=== PATIENT | male | born 1960 | race Caucasian/White ===

== ENCOUNTER 2016-12-12 13:52 | Inpatient (IN) | payer OTHER ==
[~2016-12-12] VITALS: Ht 182.9 cm; Wt 150.5 kg
[~2016-12-12 13:52] MED LIST: Hydrocodone Bit/Acetaminophen PO; LEVO750T25 PO
[2016-12-12] MEDS ORDERED: DICLOFENAC SODIUM 37.5 MG/ML VIAL IV STA (16:09)
[2016-12-12] MEDS ORDERED: VANCOMYCIN 1 GM (PMX) 250 ML IVPB SCH (16:30)
[2016-12-12] MEDS ORDERED: SOD CHLORIDE 0.9% 1,000 ML IV ONE (16:30)
[2016-12-12 16:46] LABS: ADD SCAN DIFF NO
[2016-12-12 16:50] LABS: BASOPHILS % 0.5 % (0.0-2.0); EOSINOPHILS # 0.2 10^3/ul (0.0-0.5); EOSINOPHILS % 3.2 % (0.0-7.0); HEMATOCRIT 42.1 % (42.0-52.0); HEMOGLOBIN 13.7 g/dl (14.0-18.0); LYMPHOCYTES # 1.5 10^3/ul (0.8-2.9); LYMPHOCYTES % 20.6 % (15.0-51.0); MEAN CORPUSCULAR HEMOGLOBIN 29.1 pg (29.0-33.0); MEAN CORPUSCULAR HGB CONC 32.5 g/dl (32.0-37.0); MEAN CORPUSCULAR VOLUME 89.6 fl (82.0-101.0); MEAN PLATELET VOLUME 10.8 fl (7.4-10.4); MONOCYTE # 0.5 10^3/ul (0.3-0.9); MONOCYTES % 6.3 % (0.0-11.0); NEUTROPHIL # 5.1 10^3/ul (1.6-7.5); NEUTROPHILS % 69.1 % (39.0-77.0); PLATELET COUNT 102 10^3/UL (140-415); WHITE BLOOD COUNT 7.4 10^3/ul (4.8-10.8)
[2016-12-12 17:00] LABS: INR 1.12; PROTIME 14.4 Sec (12.2-14.2); PT RATIO 1.1
[2016-12-12 17:01] LABS: ALBUMIN 3.8 g/dl (3.3-4.9); PARTIAL THROMBOPLASTIN TIME 33.9 Sec (25.0-35.0); POTASSIUM 4.2 mmol/L (3.5-5.1)
[2016-12-12 17:03] LABS: BILIRUBIN,INDIRECT 0.6 mg/dl (0-1.1); BILIRUBIN,TOTAL 0.6 mg/dl (0.2-1.3); CREATININE 1.35 mg/dl (0.61-1.24)
[2016-12-12 17:04] LABS: ALBUMIN/GLOBULIN RATIO 1.18
[2016-12-12 17:05] LABS: CALCIUM 9.1 mg/dl (8.4-10.2)
--- NOTE | 2016-12-12 17:55 | RADRPT ---
PROCEDURE: US Abdomen. CLINICAL INDICATION: Panniculitis. Erythematous abdominal pain. Assess for fluid collection and soft tissues. TECHNIQUE: Multiple real-time images were acquired of the patient's abdomen and right lower quadra nt utilizing a high resolution transducer. COMPARISON: CT scan of the abdomen and pelvis 02/22/2015. FINDINGS: No subcutaneous abscess or fluid collection is noted. Small bowel loops are noted within the perito lesley cavity. There is no evidence of ascites. IMPRESSION: 1. No subcutaneous fluid collection is identified to suggest an abscess. 2. No free intraperitoneal fluid collection is identified. RPTAT:AAJJ Physician Thuan Date Time Electronically viewed and signed by Physician Thuan on 12/12/2016 17:55 /
[2016-12-12] MEDS ORDERED: ONDANSETRON 4 MG INJ IV PRN (23:00)
[2016-12-12] MEDS ORDERED: ACETAMINOPHEN 325 MG TAB PO PRN (23:00)
--- NOTE | 2016-12-12 23:15 | ERA ---
ER Documentation Chief Complaint Date/Time DATE: 12/12/16 TIME: 23:09 Chief Complaint abd area pain with redness with no nausea no vomiting. no diarrhea HPI This 56-year-old male presents with pain to the surface of his lower abdomen as well as redness and swelling. He denies fever chills, nausea vomiting or diarrhea. He is morbidly obese and is strict diet for the last 2 months trying to lose the weight. ROS All systems reviewed and are negative except as per history of present illness. Medications Home Meds Discontinued Scripts Levofloxacin* (Levaquin*) 750 Mg Tablet, 750 MG PO DAILY, #5 TAB Prov:MARANDARCOBY 02/24/15 [Hydrocodone Bit/Acetaminophen] 1 TAB TAB No Conflict Check, 2 TAB PO Q6H Y for SEVERE PAIN LEVEL 7-10, #40 TAB Prov:REGIDORCOBY 02/24/15 Allergies Allergies: Coded Allergies: No Known Allergy (Unverified , 12/12/16) PMhx/Soc History of Surgery: Yes (L knee surgery) Anesthesia Reaction: No Hx Neurological Disorder: No Hx Respiratory Disorders: No Hx Cardiac Disorders: No Hx Psychiatric Problems: No Hx Miscellaneous Medical Probl: Yes (obesity,bacteremia w/ MRSA, L knee wound w / MRSA) Hx Alcohol Use: No Hx Substance Use: No Hx Tobacco Use: No Smoking Status: Never smoker Physical Exam Vitals Vital Signs Date Time Temp Pulse Resp B/P Pulse Ox O2 Delivery O2 Flow Rate FiO2 12/12/16 23:00 83 20 122/65 91 Room Air 12/12/16 22:00 78 18 117/67 95 Room Air 12/12/16 21:00 68 19 90/69 93 Room Air 12/12/16 20:00 71 16 93/80 96 Room Air 12/12/16 19:00 65 18 93/81 97 Room Air 12/12/16 18:49 63 18 117/69 93 Room Air 12/12/16 13:57 98.5 92 21 166/98 97 Physical Exam Const: [] No distress Head: Atraumatic Eyes: Normal Conjunctiva ENT: Normal External Ears, Nose and Mouth. Neck: Full range of motion..~ No meningismus. Resp: Clear to auscultation bilaterally Cardio: Regular rate and rhythm, no murmurs Abd: Soft, morbidly obese, lower pannus with significant erythema, calor, tenderness to light palpation of surface. No areas of fluctuance found. Patient does not have specific tenderness to deep palpation, no guarding or rebound. non distended. Normal bowel sounds Skin: No petechiae or rashes Back: No midline or flank tenderness Ext: No cyanosis, or edema Neur: Awake and alert and oriented 3, no focal deficits Psych: Normal Mood and Affect Result Diagram: 12/12/16 1620 12/12/16 1620 Results 24 hrs Laboratory Tests Test 12/12/16 16:20 Activated Partial Thromboplast Time 33.9Sec Alanine Aminotransferase (ALT/SGPT) 40IU/L Albumin 3.8g/dl Albumin/Globulin Ratio 1.18 Alkaline Phosphatase 62IU/L Anion Gap 17 Aspartate Amino Transf (AST/SGOT) 34IU/L Basophils # 0.010^3/ul Basophils % 0.5% Blood Urea Nitrogen 23mg/dl Calcium Level 9.1mg/dl Carbon Dioxide Level 26mmol/L Chloride Level 108mmol/L Creatinine 1.35mg/dl Direct Bilirubin 0.00mg/dl Eosinophils # 0.210^3/ul Eosinophils % 3.2% Globulin 3.20g/dl Glucose Level 110mg/dl Hematocrit 42.1% Hemoglobin 13.7g/dl INR International Normalized Ratio 1.12 Indirect Bilirubin 0.6mg/dl Lymphocytes # 1.510^3/ul Lymphocytes % 20.6% Mean Corpuscular Hemoglobin 29.1pg Mean Corpuscular Hemoglobin Concent 32.5g/dl Mean Corpuscular Volume 89.6fl Mean Platelet Volume 10.8fl Monocytes # 0.510^3/ul Monocytes % 6.3% Neutrophils # 5.110^3/ul Neutrophils % 69.1% Nucleated Red Blood Cells # 0.010^3/ul Nucleated Red Blood Cells % 0.0/100WBC Platelet Count 78997^3/UL Potassium Level 4.2mmol/L Prothrombin Time 14.4Sec Prothrombin Time Ratio 1.1 Red Blood Count 4.7010^6/ul Red Cell Distribution Width 15.0% Sodium Level 147mmol/L Total Bilirubin 0.6mg/dl Total Protein 7.0g/dl White Blood Count 7.410^3/ul Current Medications Medications (Trade) Dose Ordered Sig/[place] Route PRN Reason Start Time Stop Time Status Last Admin Dose Admin Sodium Chloride 1,000 ml @ 1,000 mls/hr Q1H ONCE IV 12/12/16 16:30 12/12/16 17:29 DC 12/12/16 16:38 Vancomycin HCl (Vancocin) 250 ml @ 125 mls/hr ONCE IVPB 12/12/16 16:30 12/12/16 18:29 DC 12/12/16 16:39 Diclofenac Sodium (Dyloject) 37.5 mg ONCE STAT IV 12/12/16 16:09 12/12/16 16:17 DC 12/12/16 16:39 Ondansetron HCl (Zofran Inj) 4 mg BRIDGE ORDER PRN IV NAUSEA AND/OR VOMITING 12/12/16 23:00 12/13/16 22:59 Acetaminophen (Tylenol Tab) 650 mg ER BRIDGE PRN PO MILD PAIN/FEVER 12/12/16 23:00 12/13/16 22:59 Procedures/MDM Patient with significant infectious panniculitis. He has such a large area of the surface it is infected that I do not believe is amenable to outpatient therapy with simple p.o. antibiotics. Believe he needs to be admitted for IV antibiotic initiation. Spoke with Dr. Aguilar and he will be admitted the patient to [facility]. Patient was given vancomycin as well as Rocephin. No signs of richie sepsis. I believe the infection is limited to cellulitis at this point. Cultures were taken. Patient was given dilute inject for pain. IV normal saline was administered. Patient could not fit in the CT machine and so had an ultrasound performed to look for any fluid collections which would represent abscess that would need to be drained. None were found. Limited abdominal ultrasound interpretation: No fluid collection. Departure Diagnosis: Primary Impression: Panniculitis Additional Impression: Renal insufficiency Condition: Stable MARLENE SANTILLAN DO Dec 12, 2016 23:15
[2016-12-12 23:50] VITALS: BP 131/66; PULSE 80; RESP 18
[2016-12-13 00:13] VITALS: Ht 182.9 cm; Wt 150.5 kg
[2016-12-13] MEDS ORDERED: HYDROCODONE/APAP (5/325) TAB PO PRN (00:30)
[2016-12-13] MEDS ORDERED: morphine 2 MG INJ IV PRN (00:30)
[2016-12-13] MEDS ORDERED: VANCOMYCIN IV PER PHARMACY XX SCH (00:30)
[2016-12-13] MEDS ORDERED: ACETAMINOPHEN 325 MG TAB PO PRN (00:30)
[2016-12-13] MEDS ORDERED: ONDANSETRON 4 MG INJ IV PRN (00:30)
[2016-12-13] MEDS: SOD CHLORIDE 0.45% 1,000 ML IV SCH ×3 (01:02→21:59)
[2016-12-13] MEDS: CEFEPIME 2GM/50 ML (PMX) 50 ML IVPB SCH ×3 (01:43→21:53)
[2016-12-13] MEDS: VANCOMYCIN 1.5 GM in SOD CHLORIDE 0.9% 250 ML IVPB SCH ×2 (02:19→15:47)
[2016-12-13 05:14] LABS: ADD SCAN DIFF NO
[2016-12-13 05:20] LABS: ABNORMAL IP MESSAGE 1; BASOPHILS % 0.3 % (0.0-2.0); EOSINOPHILS # 0.3 10^3/ul (0.0-0.5); EOSINOPHILS % 4.1 % (0.0-7.0); HEMATOCRIT 39.2 % (42.0-52.0); HEMOGLOBIN 12.5 g/dl (14.0-18.0); LYMPHOCYTES # 0.9 10^3/ul (0.8-2.9); LYMPHOCYTES % 13.3 % (15.0-51.0); MEAN CORPUSCULAR HEMOGLOBIN 28.7 pg (29.0-33.0); MEAN CORPUSCULAR HGB CONC 31.9 g/dl (32.0-37.0); MEAN CORPUSCULAR VOLUME 90.1 fl (82.0-101.0); MEAN PLATELET VOLUME 10.7 fl (7.4-10.4); MONOCYTE # 0.4 10^3/ul (0.3-0.9); MONOCYTES % 6.7 % (0.0-11.0); NEUTROPHIL # 4.9 10^3/ul (1.6-7.5); NEUTROPHILS % 75.3 % (39.0-77.0); PLATELET COUNT 82 10^3/UL (140-415); RED BLOOD COUNT 4.35 10^6/ul (4.70-6.10); RED CELL DISTRIBUTION WIDTH 15.2 % (11.5-14.5); WHITE BLOOD COUNT 6.5 10^3/ul (4.8-10.8)
[2016-12-13 05:45] LABS: POTASSIUM 3.8 mmol/L (3.5-5.1)
[2016-12-13 05:47] LABS: CREATININE 1.29 mg/dl (0.61-1.24)
[2016-12-13 05:48] LABS: PHOSPHORUS 4.9 mg/dl (2.5-4.9)
[2016-12-13 05:49] LABS: CHOL/HDL RATIO 3.9 RATIO
[2016-12-13] MEDS: PANTOPRAZOLE (EC) 40 MG TAB PO SCH (05:55)
[2016-12-13 06:12] LABS: THYROID STIMULATING HORMONE 2.86 MIU/L (0.465-4.680)
--- NOTE | 2016-12-13 06:47 | HP ---
DATE OF ADMISSION: 12/12/2016 The patient was seen and examined by me on 12/12/2014 at 10:45 p.m. CHIEF COMPLAINT: Abdominal pain with redness. HISTORY OF PRESENT ILLNESS: A 56-year-old male with a past medical history of obesity, prior bacter emia with MRSA, prior left knee wound infection with MRSA, who presents with abdominal pain in his l ower abdomen. He has also noticed redness and swelling in the area for the last 2 days. Denies any nausea or vomiting, no fevers or chills. The patient has been trying to lose weight for the last 2 months and has been on a strict diet, as he has a history of morbid obesity. No chest pain, no buck rtness of breath. When he came into the ER today he had a normal white blood cell count, but his so dium was a little high at 147. PAST MEDICAL HISTORY: As stated above. ALLERGIES: NO KNOWN DRUG ALLERGIES. MEDICATIONS AT HOME: None. PAST SURGICAL HISTORY: Left knee surgery in the past. FAMILY HISTORY: Noncontributory. SOCIAL HISTORY: Negative for smoking, drinking, or IV drug abuse. PHYSICAL EXAMINATION: VITAL SIGNS: Today T-max 98.5, pulse 63 to 92, respirations 16 to 21, blood pressure is 90 to 166 s ystolic over 69 to 98 diastolic, saturating at 91% to 97% on room air. GENERAL: The patient is lying in bed, answering appropriately, in no acute distress. HEENT: Pupils are equal, round and react to light. Extraocular muscles intact. NECK: Supple. No thyromegaly. LUNGS: Clear to auscultation bilaterally. CARDIOVASCULAR: S1, S2 heard. No rubs or gallops. ABDOMEN: Morbid obesity. There is redness and erythema noted on his lower pannus and there is tend erness to palpation on the surface, but no drainage or fluctuance found. Otherwise no rebound or gu arding. Normal bowel sounds otherwise. MUSCULOSKELETAL: No lower extremity edema bilaterally. NEUROLOGIC: No focal deficits. LABORATORIES: CBC is normal, except platelets are 102. Sodium 147, potassium 4.2, chloride 108, CO 2 26, BUN 23, creatinine 1.35, glucose 110. LFTs are normal. Coags are essentially normal, althoug h the PT is 14.4. Abdominal ultrasound was performed and shows no subcutaneous fluid collection identified to suggest an abscess. ASSESSMENT AND PLAN: A 56-year-old male coming in with abdominal pain, redness and swelling, with si gns of panniculitis and large cellulitis in that area. 1. Abdominal pain secondary to panniculitis and cellulitis. Continue broad spectrum antibiotics wi th cefepime and vancomycin. Check a TSH, A1c, and lipid panel. Tylenol p.r.n. pain and fevers. Mo rphine or [place] p.r.n. for pain. Consider an infectious disease consult. Continue IV fluids. 2. Gastrointestinal prophylaxis. Proton pump inhibitor. 3. Deep venous thrombosis prophylaxis. Heparin subcutaneously. Dictated By: WEST MENENDEZ Conf#: [id number] DID#: [id number]
[2016-12-13 07:43] VITALS: BP 93/42; RESP 20
[2016-12-13] MEDS: HEPARIN 5,000 UNIT/0.5 ML SYG SC SCH ×2 (08:32→21:57)
--- NOTE | 2016-12-13 11:53 | PN ---
Date/Time of Note Date/Time of Note DATE: 12/13/16 TIME: 11:50 Assessment/Plan VTE Prophylaxis VTE Prophylaxis Intervention: heparin Lines/Catheters IV Catheter Type (from Nrs): Peripheral IV Urinary Cath still in place: No Assessment/Plan Assessment/Plan 1. acute cellulitis/panniculitis- IV abx, Pain control 2. intractable abdominal pain 2. Gastrointestinal prophylaxis. Proton pump inhibitor. 3. Deep venous thrombosis prophylaxis. Heparin subcutaneously. Subjective 24 Hr Interval Summary Free Text/Dictation c/o abd pain, nausea, Exam/Review of Systems Vital Signs Vitals Vital Signs Date Time Temp Pulse Resp B/P Pulse Ox O2 Delivery O2 Flow Rate FiO2 12/13/16 07:43 98.0 87 20 93/42 91 12/12/16 23:50 Room Air Intake and Output 12/12/16 12/12/16 12/13/16 15:00 23:00 07:00 Intake Total 735 ml Balance 735 ml Exam GENERAL: The patient is lying in bed, answering appropriately, in no acute distress. HEENT: Pupils are equal, round and react to light. Extraocular muscles intact. NECK: Supple. No thyromegaly. LUNGS: Clear to auscultation bilaterally. CARDIOVASCULAR: S1, S2 heard. No rubs or gallops. ABDOMEN: Morbid obesity. There is redness and erythema noted on his lower pannus and there is tenderness to palpation on the surface, but no drainage or fluctuance found. Otherwise no rebound or guarding. Normal bowel sounds otherwise. MUSCULOSKELETAL: No lower extremity edema bilaterally. NEUROLOGIC: No focal deficits. Results Result Diagram: 12/13/16 0453 12/13/16 0453 Results 24 hrs Laboratory Tests Test 12/12/16 16:20 12/13/16 04:53 Activated Partial Thromboplast Time 33.9 Alanine Aminotransferase (ALT/SGPT) 40 Albumin 3.8 Albumin/Globulin Ratio 1.18 Alkaline Phosphatase 62 Anion Gap 17 H 15 Aspartate Amino Transf (AST/SGOT) 34 Basophils # 0.0 0.0 Basophils % 0.5 0.3 Blood Urea Nitrogen 23 H 20 Calcium Level 9.1 8.0 L Carbon Dioxide Level 26 25 Chloride Level 108 109 Creatinine 1.35 H 1.29 H Direct Bilirubin 0.00 Eosinophils # 0.2 0.3 Eosinophils % 3.2 4.1 Globulin 3.20 Glucose Level 110 101 Hematocrit 42.1 # 39.2 L Hemoglobin 13.7 #L 12.5 L INR International Normalized Ratio 1.12 Indirect Bilirubin 0.6 Lymphocytes # 1.5 0.9 Lymphocytes % 20.6 13.3 L Mean Corpuscular Hemoglobin 29.1 28.7 L Mean Corpuscular Hemoglobin Concent 32.5 31.9 L Mean Corpuscular Volume 89.6 90.1 Mean Platelet Volume 10.8 #H 10.7 H Monocytes # 0.5 0.4 Monocytes % 6.3 6.7 Neutrophils # 5.1 4.9 Neutrophils % 69.1 75.3 Nucleated Red Blood Cells # 0.0 0.0 Nucleated Red Blood Cells % 0.0 0.0 Platelet Count 102 L 82 L Potassium Level 4.2 3.8 Prothrombin Time 14.4 H Prothrombin Time Ratio 1.1 Red Blood Count 4.70 # 4.35 L Red Cell Distribution Width 15.0 H 15.2 H Sodium Level 147 H 145 H Total Bilirubin 0.6 Total Protein 7.0 White Blood Count 7.4 6.5 Cholesterol Level 129 Cholesterol/HDL Ratio 3.9 HDL Cholesterol 33 Hemoglobin A1c 7.0 H LDL Cholesterol, Calculated 59 Magnesium Level 2.0 Phosphorus Level 4.9 Thyroid Stimulating Hormone (TSH) 2.860 Triglycerides Level 185 H Medications Medications Current Medications Sodium Chloride (1/2 NS) 1,000 ml @ 75 mls/hr [id number] IV Last administered on 12/13/16 01:02; Admin Dose 75 MLS/HR; Start 12/13/16 at 00:30 Ondansetron HCl 4 mg 4 mg Q6H PRN IV NAUSEA AND/OR VOMITING; Start 12/13/16 at 00:30 Cefepime HCl (Maxipime 2gm/50 ml (Pmx)) 50 ml @ 100 mls/hr Q12 IVPB Last administered on 12/13/16 08:18; Admin Dose 100 MLS/HR; Start 12/13/16 at 01:30 Acetaminophen (Tylenol Tab) 650 mg Q6H PRN PO PAIN AND OR ELEVATED TEMP; Start 12/13/16 at 00:30 Morphine Sulfate (morphine) 2 mg Q4H PRN IV SEVERE PAIN LEVEL 7-10; Start 12/13 at 00:30 Acetaminophen/ Hydrocodone Bitart ([place] (5/325)) 1 tab Q6H PRN PO MODERATE PAIN LEVEL 4-6; Start 12/13/16 at 00:30 Pantoprazole (Protonix Tab) 40 mg DAILY@06 PO Last administered on 12/13/16 05 :55; Admin Dose 40 MG; Start 12/13/16 at 06:00 Heparin Sodium (Porcine) 5000 unit 5,000 unit BID SC Last administered on 08:32; Admin Dose 5,000 UNIT; Start 12/13/16 at 09:00 Vancomycin HCl/ Sodium Chloride (Vancocin/NS) 250 ml @ 83.333 mls/ hr Q12H IVPB Last administered on 12/13/16 02:19; Admin Dose 83.333 MLS/HR; Start at 02:30 HUGO MAYO MD Dec 13, 2016 11:52
[2016-12-14] MEDS: VANCOMYCIN 1.5 GM in SOD CHLORIDE 0.9% 250 ML IVPB SCH ×2 (02:26→15:49)
[2016-12-14] MEDS: PANTOPRAZOLE (EC) 40 MG TAB PO SCH (05:30)
[2016-12-14 07:58] VITALS: BP 105/59; RESP 18
[2016-12-14] MEDS: CEFEPIME 2GM/50 ML (PMX) 50 ML IVPB SCH ×2 (09:42→21:01)
[2016-12-14] MEDS: HEPARIN 5,000 UNIT/0.5 ML SYG SC SCH ×2 (09:48→21:10)
[2016-12-14] MEDS: SOD CHLORIDE 0.45% 1,000 ML IV SCH (15:50)
[2016-12-14 19:52] VITALS: BP 124/62; RESP 20
--- NOTE | 2016-12-14 20:56 | PN ---
Date/Time of Note Date/Time of Note DATE: 12/14/16 TIME: 20:55 Assessment/Plan VTE Prophylaxis VTE Prophylaxis Intervention: heparin Lines/Catheters IV Catheter Type (from Nrsg): Peripheral IV Urinary Cath still in place: No Assessment/Plan Assessment/Plan 1. acute cellulitis/panniculitis- IV abx, Pain control 2. intractable abdominal pain 2. Gastrointestinal prophylaxis. Proton pump inhibitor. 3. Deep venous thrombosis prophylaxis. Heparin subcutaneously. Subjective 24 Hr Interval Summary Free Text/Dictation less abd pain, Still has significant pannus cellulitis Exam/Review of Systems Vital Signs Vitals Vital Signs Date Time Temp Pulse Resp B/P Pulse Ox O2 Delivery O2 Flow Rate FiO2 12/14/16 19:52 98.1 20 124/62 94 12/14/16 07:58 75 12/12/16 23:50 Room Air Intake and Output 12/13/16 12/13/16 12/14/16 15:00 23:00 07:00 Intake Total 50 ml 900 ml 915 ml Balance 50 ml 900 ml 915 ml Results Result Diagram: 12/13/16 0453 12/13/16 0453 Results 24 hrs Laboratory Tests Test 12/14/16 14:00 Vancomycin Level Trough 17.6 Medications Medications Current Medications Sodium Chloride (1/2 NS) 1,000 ml @ 75 mls/hr [id number] IV Last administered on 12/14/16 15:50; Admin Dose 75 MLS/HR; Start 12/13/16 at 00:30 Ondansetron HCl 4 mg 4 mg Q6H PRN IV NAUSEA AND/OR VOMITING; Start 12/13/16 at 00:30 Cefepime HCl (Maxipime 2gm/50 ml (Pmx)) 50 ml @ 100 mls/hr Q12 IVPB Last administered on 12/14/16 09:42; Admin Dose 100 MLS/HR; Start 12/13/16 at 01:30 Acetaminophen (Tylenol Tab) 650 mg Q6H PRN PO PAIN AND OR ELEVATED TEMP; Start 12/13/16 at 00:30 Morphine Sulfate (morphine) 2 mg Q4H PRN IV SEVERE PAIN LEVEL 7-10; Start 12/13 at 00:30 Acetaminophen/ Hydrocodone Bitart ([employer] (5/325)) 1 tab Q6H PRN PO MODERATE PAIN LEVEL 4-6; Start 12/13/16 at 00:30 Pantoprazole (Protonix Tab) 40 mg DAILY@06 PO Last administered on 12/14/16 05 :30; Admin Dose 40 MG; Start 12/13/16 at 06:00 Heparin Sodium (Porcine) 5000 unit 5,000 unit BID SC Last administered on 09:48; Admin Dose 5,000 UNIT; Start 12/13/16 at 09:00 Vancomycin HCl 1.5 gm/Sodium Chloride 250 ml @ 83.333 mls/ hr Q12H IVPB Last administered on 12/14/16 15:49; Admin Dose 83.333 MLS/HR; Start 12/13/16 at 02: 30; Stop 12/14/16 at 22:00 Vancomycin HCl (Vancocin) 250 ml @ 125 mls/hr Q12H IVPB ; Start 12/15/16 at 05: 00 HUGO MAYO MD Dec 14, 2016 20:56
[2016-12-15] MEDS: PANTOPRAZOLE (EC) 40 MG TAB PO SCH (05:12)
[2016-12-15] MEDS: VANCOMYCIN 1 GM in NS 250 ML IVPB SCH ×2 (05:12→18:10)
[2016-12-15] MEDS: SOD CHLORIDE 0.45% 1,000 ML IV SCH ×3 (05:50→19:10)
[2016-12-15 05:53] LABS: ADD SCAN DIFF NO
[2016-12-15 05:54] LABS: ABNORMAL IP MESSAGE 1; BASOPHILS % 0.4 % (0.0-2.0); EOSINOPHILS # 0.3 10^3/ul (0.0-0.5); EOSINOPHILS % 5.8 % (0.0-7.0); HEMATOCRIT 37.1 % (42.0-52.0); HEMOGLOBIN 12.3 g/dl (14.0-18.0); LYMPHOCYTES % 19.4 % (15.0-51.0); MEAN CORPUSCULAR HEMOGLOBIN 29.4 pg (29.0-33.0); MEAN CORPUSCULAR HGB CONC 33.2 g/dl (32.0-37.0); MEAN CORPUSCULAR VOLUME 88.8 fl (82.0-101.0); MEAN PLATELET VOLUME 10.4 fl (7.4-10.4); MONOCYTE # 0.4 10^3/ul (0.3-0.9); NEUTROPHIL # 3.6 10^3/ul (1.6-7.5); PLATELET COUNT 94 10^3/UL (140-415); RED BLOOD COUNT 4.18 10^6/ul (4.70-6.10); RED CELL DISTRIBUTION WIDTH 14.7 % (11.5-14.5); WHITE BLOOD COUNT 5.3 10^3/ul (4.8-10.8)
[2016-12-15 06:06] LABS: POTASSIUM 3.7 mmol/L (3.5-5.1)
[2016-12-15 06:08] LABS: ALBUMIN/GLOBULIN RATIO 1.03; BILIRUBIN,INDIRECT 0.5 mg/dl (0-1.1); BILIRUBIN,TOTAL 0.5 mg/dl (0.2-1.3); CREATININE 1.32 mg/dl (0.61-1.24); TOTAL PROTEIN 5.9 g/dl (6.1-8.1)
[2016-12-15 06:09] LABS: CALCIUM 8.1 mg/dl (8.4-10.2)
[2016-12-15 07:47] VITALS: BP 90/45; RESP 18
[2016-12-15] MEDS: HEPARIN 5,000 UNIT/0.5 ML SYG SC SCH ×2 (10:21→21:14)
[2016-12-15] MEDS: CEFEPIME 2GM/50 ML (PMX) 50 ML IVPB SCH ×2 (10:49→21:07)
--- NOTE | 2016-12-15 10:59 | PN ---
Date/Time of Note Date/Time of Note DATE: 12/15/16 TIME: 10:57 Assessment/Plan VTE Prophylaxis VTE Prophylaxis Intervention: heparin Lines/Catheters IV Catheter Type (from Nrs): Peripheral IV Urinary Cath still in place: No Assessment/Plan Assessment/Plan 1. acute cellulitis/panniculitis- IV abx, Pain control 2. intractable abdominal pain 2. Gastrointestinal prophylaxis. Proton pump inhibitor. 3. Deep venous thrombosis prophylaxis. Heparin subcutaneously. Subjective 24 Hr Interval Summary Free Text/Dictation c/o pain in his panus, severe ,afebrile, BP stable Exam/Review of Systems Vital Signs Vitals Vital Signs Date Time Temp Pulse Resp B/P Pulse Ox O2 Delivery O2 Flow Rate FiO2 12/15/16 07:47 97.5 70 18 90/45 91 12/12/16 23:50 Room Air Intake and Output 12/14/16 12/14/16 12/15/16 15:00 23:00 07:00 Intake Total 1120 ml 1500 ml Balance 1120 ml 1500 ml Exam GENERAL: The patient is lying in bed, answering appropriately, in no acute distress. HEENT: Pupils are equal, round and react to light. Extraocular muscles intact. NECK: Supple. No thyromegaly. LUNGS: Clear to auscultation bilaterally. CARDIOVASCULAR: S1, S2 heard. No rubs or gallops. ABDOMEN: Morbid obesity. There is redness and erythema noted on his lower pannus and there is tenderness to palpation on the surface, but no drainage or fluctuance found. Otherwise no rebound or guarding. Normal bowel sounds otherwise. MUSCULOSKELETAL: No lower extremity edema bilaterally. NEUROLOGIC: No focal deficits. Results Result Diagram: 12/15/16 0525 12/15/16 0525 Results 24 hrs Laboratory Tests Test 12/14/16 14:00 12/15/16 05:25 Vancomycin Level Trough 17.6 Alanine Aminotransferase (ALT/SGPT) 36 Albumin 3.0 L Albumin/Globulin Ratio 1.03 Alkaline Phosphatase 50 Anion Gap 14 Aspartate Amino Transf (AST/SGOT) 41 Basophils # 0.0 Basophils % 0.4 Blood Urea Nitrogen 15 Calcium Level 8.1 L Carbon Dioxide Level 25 Chloride Level 109 Creatinine 1.32 H Direct Bilirubin 0.00 Eosinophils # 0.3 Eosinophils % 5.8 Globulin 2.90 Glucose Level 98 Hematocrit 37.1 L Hemoglobin 12.3 L Indirect Bilirubin 0.5 Lymphocytes # 1.0 Lymphocytes % 19.4 Mean Corpuscular Hemoglobin 29.4 Mean Corpuscular Hemoglobin Concent 33.2 Mean Corpuscular Volume 88.8 Mean Platelet Volume 10.4 Monocytes # 0.4 Monocytes % 7.0 Neutrophils # 3.6 Neutrophils % 67.0 Nucleated Red Blood Cells # 0.0 Nucleated Red Blood Cells % 0.0 Platelet Count 94 L Potassium Level 3.7 Red Blood Count 4.18 L Red Cell Distribution Width 14.7 H Sodium Level 144 Total Bilirubin 0.5 Total Protein 5.9 L White Blood Count 5.3 Medications Medications Current Medications Sodium Chloride (1/2 NS) 1,000 ml @ 75 mls/hr [id number] IV Last administered on 12/14/16 15:50; Admin Dose 75 MLS/HR; Start 12/13/16 at 00:30 Ondansetron HCl 4 mg 4 mg Q6H PRN IV NAUSEA AND/OR VOMITING; Start 12/13/16 at 00:30 Cefepime HCl (Maxipime 2gm/50 ml (Pmx)) 50 ml @ 100 mls/hr Q12 IVPB Last administered on 12/15/16 10:49; Admin Dose 100 MLS/HR; Start 12/13/16 at 01:30 Acetaminophen (Tylenol Tab) 650 mg Q6H PRN PO PAIN AND OR ELEVATED TEMP; Start 12/13/16 at 00:30 Morphine Sulfate (morphine) 2 mg Q4H PRN IV SEVERE PAIN LEVEL 7-10; Start 12/13 at 00:30 Acetaminophen/ Hydrocodone Bitart ([place] (5/325)) 1 tab Q6H PRN PO MODERATE PAIN LEVEL 4-6; Start 12/13/16 at 00:30 Pantoprazole (Protonix Tab) 40 mg DAILY@06 PO Last administered on 12/15/16 05 :12; Admin Dose 40 MG; Start 12/13/16 at 06:00 Heparin Sodium (Porcine) 5000 unit 5,000 unit BID SC Last administered on 10:21; Admin Dose 5,000 UNIT; Start 12/13/16 at 09:00 Vancomycin HCl (Vancocin) 250 ml @ 125 mls/hr Q12H IVPB Last administered on 05:12; Admin Dose 125 MLS/HR; Start 12/15/16 at 05:00 HUGO MAYO MD Dec 15, 2016 10:58
[2016-12-15 19:00] VITALS: BP 116/61; RESP 20
[2016-12-16] MEDS: SOD CHLORIDE 0.45% 1,000 ML IV SCH ×2 (04:36→08:30)
[2016-12-16] MEDS: VANCOMYCIN 1 GM in NS 250 ML IVPB SCH (04:36)
[2016-12-16] MEDS: PANTOPRAZOLE (EC) 40 MG TAB PO SCH (06:04)
[2016-12-16 06:22] LABS: POTASSIUM 3.9 mmol/L (3.5-5.1)
[2016-12-16 06:25] LABS: CALCIUM 8.2 mg/dl (8.4-10.2); CREATININE 1.25 mg/dl (0.61-1.24)
[2016-12-16 07:47] VITALS: BP 93/49; RESP 24
[2016-12-16] MEDS: CEFEPIME 2GM/50 ML (PMX) 50 ML IVPB SCH (09:25)
[2016-12-16] MEDS: HEPARIN 5,000 UNIT/0.5 ML SYG SC SCH (09:28)
--- NOTE | 2016-12-16 11:15 | PN ---
Date/Time of Note Date/Time of Note DATE: 12/16/16 TIME: 11:14 Assessment/Plan VTE Prophylaxis VTE Prophylaxis Intervention: heparin Lines/Catheters IV [facility] Peripheral IV Urinary Cath still in place: No Assessment/Plan Assessment/Plan 1. acute cellulitis/panniculitis- IV abx, Pain control 2. intractable abdominal pain 2. Gastrointestinal prophylaxis. Proton pump inhibitor. 3. Deep venous thrombosis prophylaxis. Heparin subcutaneously. Subjective 24 Hr Interval Summary Free Text/Dictation doing better, afebrile, BP stable Exam/Review of Systems Vital Signs Vitals Vital Signs Date Time Temp Pulse Resp B/P Pulse Ox O2 Delivery O2 Flow Rate FiO2 12/16/16 07:47 97.9 60 24 93/49 92 12/12/16 23:50 Room Air Intake and Output 12/15/16 12/15/16 12/16/16 15:00 23:00 07:00 Intake Total 1050 ml 1580 ml 650 ml Balance 1050 ml 1580 ml 650 ml Exam GENERAL: The patient is lying in bed, answering appropriately, in no acute distress. HEENT: Pupils are equal, round and react to light. Extraocular muscles intact. NECK: Supple. No thyromegaly. LUNGS: Clear to auscultation bilaterally. CARDIOVASCULAR: S1, S2 heard. No rubs or gallops. ABDOMEN: Morbid obesity. There is redness and erythema noted on his lower pannus and there is tenderness to palpation on the surface, but no drainage or fluctuance found. Otherwise no rebound or guarding. Normal bowel sounds otherwise. MUSCULOSKELETAL: No lower extremity edema bilaterally. NEUROLOGIC: No focal deficits. Results Result Diagram: 12/15/16 0525 12/16/16 0535 Results 24 hrs Laboratory Tests Test 12/16/16 05:35 Anion Gap 13 Blood Urea Nitrogen 15 Calcium Level 8.2 L Carbon Dioxide Level 27 Chloride Level 108 Creatinine 1.25 H Glucose Level 95 Potassium Level 3.9 Sodium Level 144 Medications Medications Current Medications Sodium Chloride (1/2 NS) 1,000 ml @ 75 mls/hr [id number] IV Last administered on 12/16/16t 04:36; Admin Dose 75 MLS/HR; Start 12/13/16 at 00:30 Ondansetron HCl 4 mg 4 mg Q6H PRN IV NAUSEA AND/OR VOMITING; Start 12/13/16 at 00:30 Cefepime HCl (Maxipime 2gm/50 ml (Pmx)) 50 ml @ 100 mls/hr Q12 IVPB Last administered on 12/16/16 09:25; Admin Dose 100 MLS/HR; Start 12/13/16 at 01:30 Acetaminophen (Tylenol Tab) 650 mg Q6H PRN PO PAIN AND OR ELEVATED TEMP; Start 12/13/16 at 00:30 Morphine Sulfate (morphine) 2 mg Q4H PRN IV SEVERE PAIN LEVEL 7-10; Start 12/13 at 00:30 Acetaminophen/ Hydrocodone Bitart ([place] (5/325)) 1 tab Q6H PRN PO MODERATE PAIN LEVEL 4-6; Start 12/13/16 at 00:30 Pantoprazole (Protonix Tab) 40 mg DAILY@06 PO Last administered on 12/16/16 06 :04; Admin Dose 40 MG; Start 12/13/16 at 06:00 Heparin Sodium (Porcine) 5000 unit 5,000 unit BID SC Last administered on 09:28; Admin Dose 5,000 UNIT; Start 12/13/16 at 09:00 Vancomycin HCl (Vancocin) 250 ml @ 125 mls/hr Q12H IVPB Last administered on 04:36; Admin Dose 125 MLS/HR; Start 12/15/16 at 05:00 Miscellaneous Information (*Rx Drug Level Order Reminder*) VANCO TROUGH @ 1, 600 ON... ONCE ONCE XX ; Start 12/16/16 at 16:00; Stop 12/16/16 at 16:01 HUGO MAYO MD Dec 16, 2016 11:14
--- NOTE | 2016-12-16 11:16 | PDOCDIS ---
Discharge Instructions CONDITION Patient Condition: Good HOME CARE INSTRUCTIONS: Special Diet: low fat diet ACTIVITY: Activity Restrictions: Slowly Increase Activity Rest between Activity Avoid heavy lifting Avoid Heavy Housework FOLLOW UP/APPOINTMENTS Appointments follow up with his own PMD through HMO insurance in 1-2 week after discharge HUGO MAYO MD Dec 16, 2016 11:16
[2016-12-16] MEDS ORDERED: METO10TA92 PO (11:17)
[2016-12-16] MEDS ORDERED: BACTDS PO (11:17)
--- NOTE | 2016-12-17 22:22 | DS ---
DATE OF ADMISSION: 12/12/2016 DATE OF DISCHARGE: 12/16/2016 FINAL DISCHARGE DIAGNOSES: 1. Acute abdominal wall cellulitis with panniculitis. 2. Intractable abdominal pain. 3. Morbid obesity, currently undergoing weight loss program. HOSPITAL COURSE: This is a 56-year-old male who has a past medical history of severe morbid obesity , with history of umbilical hernia, who presented with abdominal pain, swelling, and erythema. He w as noted to have severe abdominal wall cellulitis with panniculitis. He was complaining of abdomina l pain, 10/10. Due to the cellulitis, he was started on IV antibiotics. He was mildly febrile, for which he received a few days of IV antibiotics and pain medication for pain control. After getting a few days of IV antibiotics, his cellulitis was improved. He was afebrile, white count was normal , and he got discharged home with a prescription for Bactrim-DS 1 tablet p.o. b.i.d. x10 days. DISPOSITION: To home. DISCHARGE CONDITION: Stable and improved, compared to admission. DISCHARGE ACTIVITIES: As tolerated, slowly resume to the normal baseline activity. DISCHARGE DIET: Low fat, low sodium diet. DISCHARGE MEDICATIONS: He is given prescription of Bactrim-DS 1 tablet p.o. b.i.d. x10 days. DISCHARGE FOLLOWUP INSTRUCTIONS: The patient is to follow up with his own primary care doctor [place] his HMO insurance 1-2 weeks after discharge. He has been explained about the discharge plan and followup instructions. He understood and verbalized understanding. Dictated By: HUGO MAYO MD, KP/CHANDRIKA Conf#: [id number] DID#: [id number]
== END 2016-12-16 13:35 | disposition home or self-care (01) | DRG 603 ==
LOC: E/R 13:52 → MS2 22:43
PROVIDERS: ADMIT Hospitalist; ATTEND Hospitalist
DX: L03.311 Cellulitis of abdominal wall (principal); Z68.42 Body mass index [BMI] 45.0-49.9, adult; M79.3 Panniculitis, unspecified; E66.01 Morbid (severe) obesity due to excess calories
CPT/HCPCS: 36415; 76705; 80048; 80053; 80061; 80202; 83036; 83735; 84100; 84443; 85025; 85610; 85730; 87040; 96374; 96375; J0692; J1644; J3370; J7030; J7050